=== PATIENT | male | born 1940 | race Caucasian/White ===

== ENCOUNTER 2017-06-06 10:54 | Emergency (ER) | payer MEDICARE | END 2017-06-06 15:12 | disposition home or self-care (01) | LOC: EDH 10:54 | DX: J18.9 Pneumonia, unspecified organism (principal); I10 Essential (primary) hypertension; J44.9 Chronic obstructive pulmonary disease, unspecified; Z87.891 Personal history of nicotine dependence | CPT/HCPCS: 71046; 87804; 93005 ==